=== PATIENT | male | born 1950 | race Caucasian/White ===

== ENCOUNTER 2019-03-17 03:19 | Observation (INO) | payer OTHER, MEDICARE ==
[2019-03-17] MEDS ORDERED: NS 1,000 ML IV ONE (03:28)
--- NOTE | 2019-03-17 03:29 | EDPHY ---
H & P Stated Complaint: afib Time Seen by Provider: 03/17/19 03:29 HPI/ROS: HPI CHIEF COMPLAINT: Palpitations, fast heart rate, and irregular heart rate. HISTORY OF PRESENT ILLNESS: Patient is a 69-year-old male, he arrives to the emergency room stating that he woke up from sleep around 230 in the morning feeling his heart race very fast and irregular. He did not have any chest pain or shortness of breath denies any chest pressure. However continues to have palpitations. Patient does report that he did a large amount of yd work today may have gotten hydrated. Past Medical History: History of hypertension in AFib. Past Surgical History: Recent surgical history Social History: Denies drugs or tobacco. Occasional alcohol use. Family History: Noncontributory ROS REVIEW OF SYSTEMS: 10 Systems were reviewed and negative with the exception of the elements mentioned in the history of present illness. Exam Constitutional nontoxic, triage nursing summary reviewed, vital signs reviewed , awake/alert. Eyes normal conjunctivae and sclera, EOMI, PERRLA. HENT normal inspection, atraumatic, moist mucus membranes, no epistaxis, neck supple/ no meningismus, no raccoon eyes. Respiratory clear to auscultation bilaterally, normal breath sounds, no respiratory distress, no wheezing. Cardiovascular irregular, irregular rhythm, fast. Gastrointestinal soft, non-tender, no rebound, no guarding, normal bowel sounds, no distension, no pulsatile mass. Genitourinary no CVA tenderness. Musculoskeletal no midline vertebral tenderness, full range of motion, no calf swelling, no tenderness of extremities, no meningismus, good pulses, neurovascularly intact. Skin pink, warm, & dry, no rash, skin atraumatic. Neurologic awake, alert and oriented x 3, AAOx3, moves all 4 extremities equally, motor intact, sensory intact, CN II-XII intact, normal cerebellar, normal vision, normal speech. Psychiatric normal mood/affect. Heme/Lymph/Immune no lymphadenopathy. Differential Diagnosis: Includes but is not limited to in a particular order AFib with RVR, SVT, AVR ENT, V-tach, VFib, ACS Medical Decision Making: Plan for this patient IV establishment IV fluid bolus , EKG, chest x-ray, basic labs, troponin, IV fluid bolus. Re-evaluation: EKG interpretation by me on record in [facility] system. Impression time of EKG 3:34 a.m., AFib rate of 101, no signs of acute ischemia no ST elevation no ST depression Troponin 0.02. Chest x-ray: Negative for acute cardiopulmonary disease. Patient was given 15 mg of IV diltiazem. Patient's current heart rate is 64 and appears to be sinus on the monitor. Will repeat EKG. EKG interpretation by me on record in [facility] system. Impression time of EKG 5:36 a.m. This is a repeat EKG sinus rhythm rate of 61, no acute ischemia no ST elevation no ST depression no significant T-wave abnormalities. Repeat troponin 0.07. Long discussion with the patient as well as Cardiology I spoke with Dr. Lezama, discussed the case in detail. Dr. Pizano would like the patient to be admitted for further evaluation echocardiogram serial enzymes. I discussed this with the patient. He is agreeable for this plan. Dr. Horn consulted for admission. Agrees to admit. Source: Patient - Personal History Current Tetanus Diphtheria and Acellular Pertussis (TDAP): Yes Tetanus Vaccine Date: 2009 - Medical/Surgical History Hx Asthma: No Hx Chronic Respiratory Disease: No Hx Diabetes: No Hx Cardiac Disease: Yes Hx Renal Disease: No Hx Cirrhosis: No Hx Alcoholism: No Hx HIV/AIDS: No Hx Splenectomy or Spleen Trauma: No Other PMH: afib, L knee surgery, rhinoplasty - Social History Smoking Status: Never smoked Constitutional: Initial Vital Signs Temperature (C) 36.6 C 03/17/19 03:25 Heart Rate 100 03/17/19 03:25 Respiratory Rate 18 03/17/19 03:25 Blood Pressure 149/102 H 03/17/19 03:25 O2 Sat (%) 97 03/17/19 03:25 O2 Delivery Mode Room Air O2 (L/minute) 2 Allergies/Adverse Reactions: lisinopril Allergy (Verified 03/17/19 03:21) Penicillins Allergy (Verified 03/17/19 03:21) Home Medications: Medication Instructions Recorded Atorvastatin Calcium [Lipitor 10 10 mg PO HS 02/21/12 mg (*)] Fluticasone Nasal [Flonase Nasal 2 sprays NASAL DAILY 02/21/12 [place]] Nebivolol HCl [Bystolic 5 mg (*)] 5 mg PO DAILY 03/26/12 Apixaban [Eliquis] 5 mg PO BID #60 tab 03/17/19 Calcium Carb W/Vit D [Calcium Carb 500 mg PO DAILY 03/17/19 W/Vit D 500/200 (*)] Cholecalciferol Vit D3 [Vitamin D3 1,000 units PO DAILY 03/17/19 (*)] Flurandrenolide [Cordran] 1 saumya TP DAILY PRN 03/17/19 Herbals/Supplements -Info Only 1 ea PO DAILY 03/17/19 Luliconazole [Luzu] 1 saumya TP DAILY PRN 03/17/19 Multivitamins [Multivitamin (*)] 1 each PO DAILY 03/17/19 [place]-3 Fatty Acids [Fish Oil 1000 1,000 mg PO DAILY 03/17/19 mg (*)] amLODIPine BESYLATE [Norvasc 2.5 2.5 mg PO DAILY #30 tab 03/17/19 mg (*)] Medical Decision Making - Data Points Laboratory Results: Laboratory Results 03/17/19 03:40 03/17/19 03:40 03/17/19 03:40 TSH 5.180 uIU/mL H uIU/mL (0.465-4.680) Medications Given: Discontinued Medications Amlodipine Besylate (Norvasc) 2.5 mg PO DAILY CYNTHIA Stop: 09/13/19 11:59 Last Admin: 03/17/19 12:04 Dose: 2.5 mg Apixaban (Eliquis) 5 mg PO BID CYNTHIA Stop: 09/13/19 11:59 Last Admin: 03/17/19 12:05 Dose: 5 mg Chlorthalidone (Chlorthalidone) 6.25 mg PO DAILY CYNTHIA Stop: 09/13/19 11:14 Last Admin: 03/17/19 11:56 Dose: Not Given Diltiazem HCl (Cardizem 25 Mg/5 Ml Vial) 10 mg IVP EDNOW ONE Stop: 03/17/19 03:39 Last Admin: 03/17/19 03:55 Dose: 10 mg Sodium Chloride (Ns) 1,000 mls @ 0 mls/hr IV EDNOW ONE; Wide Open PRN Reason: Protocol Stop: 03/17/19 03:29 Last Admin: 03/17/19 03:55 Dose: 1,000 mls Nebivolol (Bystolic) 5 mg PO DAILY CYNTHIA Stop: 09/13/19 11:14 Last Admin: 03/17/19 12:05 Dose: 5 mg Potassium Chloride (Klor Packets) 20 meq PO EDNOW ONE Stop: 03/17/19 06:13 Last Admin: 03/17/19 06:30 Dose: 20 meq Point of Care Test Results: Chemistry 03/17/19 03/17/19 05:44 03:40 POC Troponin I 0.07 ng/mL ng/mL 0.02 ng/mL ng/mL (0.00-0.08) (0.00-0.08) Departure - Departure Disposition: [facility] Inpatient Acute Clinical Impression: Atrial fibrillation Condition: Good
[2019-03-17] MEDS ORDERED: DILTIAZEM 25 MG/5 ML VIAL IVP ONE (03:38)
[2019-03-17 03:47] LABS: PLATELET COUNT 160 10^3/uL (150-400)
[2019-03-17 04:04] LABS: INR 0.98 (0.83-1.16); PROTIME(PATIENT) 12.6 SEC (12.0-15.0)
[2019-03-17] MEDS ORDERED: POTASSIUM CL 20 MEQ PKT PO ONE (06:12)
[2019-03-17] MEDS ORDERED: ONDANSETRON 4 MG/2 ML VIAL IVP PRN (08:39)
[2019-03-17] MEDS ORDERED: oxyCODONE IR 5 MG TAB PO PRN (08:39)
[2019-03-17] MEDS ORDERED: ACETAMINOPHEN 325 MG TAB PO PRN (08:39)
[2019-03-17] MEDS ORDERED: ONDANSETRON DISINTEGRATING 4 MG TAB PO PRN (08:39)
--- NOTE | 2019-03-17 10:48 | PDGENHP ---
History and Physical - Chief Complaint palpitations - History of Present Illness 69yo M with history of paroxysmal atrial fibrillation, HTN, HLD, ASD presents to ED after being woken up by palpitations. He thought he was having a panic attack. Denies chest discomfort, dizziness, lightheadedness. He was feeling a little short of breath and decided to come to the ED where he was found to be in atrial fibrillation with a HR in the low 100s. His BP was normal. He was given one dose of 15mg IV diltiazem and converted to sinus rhythm where he has remained. His repeat ECG was without acute ischemia. Initial POC troponin was 0.02 and repeat was 0.07. ED provider d/w cardiology who recommended observation for echocardiogram and serial troponins. Currently patient has no complaints. He denies any chest pain. He reports exercising routinely without palpitations. He has never had an [place]. History Information - Allergies/Home Medication List Allergies/Adverse Reactions: lisinopril Allergy (Verified 03/17/19 03:21) Penicillins Allergy (Verified 03/17/19 03:21) Home Medications: Aspirin [Aspirin 81mg (OTC)] 81 mg PO HS 02/21/12 [Last Taken 03/16/19] Atorvastatin Calcium [Lipitor 10 mg (RX)] 10 mg PO HS 02/21/12 [Last Taken 03/16] Fluticasone Nasal [Flonase Nasal [place] (RX)] 2 sprays NASAL DAILY 02/21/12 [ Last Taken 03/16/19] Nebivolol HCl [Bystolic 5 mg (RX)] 5 mg PO DAILY 02/21/12 [Last Taken 03/16/19] Calcium Carb W/Vit D [Calcium Carb W/Vit D 500/200 (*)] 500 mg PO DAILY [Last Taken Unknown] Chlorthalidone [Chlorthalidone 25 mg (*)] 6.25 mg PO DAILY 03/17/19 [Last Taken 03/16/19] Cholecalciferol Vit D3 [Vitamin D3 (*)] 1,000 units PO DAILY 03/17/19 [Last Taken Unknown] Flurandrenolide [Cordran] 1 saumya TP DAILY PRN 03/17/19 [Last Taken Unknown] Herbals/Supplements -Info Only 1 ea PO DAILY 03/17/19 [Last Taken Unknown] Luliconazole [Luzu] 1 saumya TP DAILY PRN 03/17/19 [Last Taken Unknown] Multivitamins [Multivitamin (*)] 1 each PO DAILY 03/17/19 [Last Taken Unknown] [place]-3 Fatty Acids [Fish Oil 1000 mg (*)] 1,000 mg PO DAILY 03/17/19 [Last Taken Unknown] I have personally reviewed and updated: family history, medical history, social history, surgical history - Past Medical History Additional medical history: paroxysmal atrial fibrillation, HTN, HLD, ASD - Surgical History Additional surgical history: knee surgery - Family History Additional family history: No family history of CAD. 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 Review of Systems Review of Systems: ROS: 10pt was reviewed & negative except for what was stated in HPI & below Physical Exam Physical Exam: Temp Pulse Resp BP Pulse Ox 36.3 C 63 17 126/75 H 94 03/17/19 09:54 03/17/19 09:54 03/17/19 09:54 03/17/19 09:54 03/17/19 09:54 Constitutional: no apparent distress, appears nourished, not in pain Eyes: PERRL, anicteric sclera, EOMI Ears, Nose, Mouth, Throat: moist mucous membranes, hearing normal, ears appear normal, no oral mucosal ulcers Cardiovascular: regular rate and rhythym, no murmur, rub, or gallop, No JVD, No edema Respiratory: no respiratory distress, no rales or rhonchi, clear to auscultation Gastrointestinal: normoactive bowel sounds, soft, non-tender abdomen, no palpable masses Genitourinary: no bladder fullness, no bladder tenderness Skin: warm, normal color, no rashes or abrasions, no fluctuance, no induration, No mottled Musculoskeletal: full muscle strength, no muscle tenderness, normal joint ROM, no joint effusions Neurologic: AAOx3 Psychiatric: interacting appropriately, not anxious, not encephalopathic, thought process linear Lab Data & Imaging Review 03/17/19 03:40 03/17/19 03:40 WBC 7.74 10^3/uL (3.80-9.50) 03/17/19 03:40 RBC 5.11 10^6/uL (4.40-6.38) 03/17/19 03:40 Hgb 15.2 g/dL (13.7-17.5) 03/17/19 03:40 Hct 43.0 % (40.0-51.0) 03/17/19 03:40 MCV 84.1 fL (81.5-99.8) 03/17/19 03:40 MCH 29.7 pg (27.9-34.1) 03/17/19 03:40 MCHC 35.3 g/dL (32.4-36.7) 03/17/19 03:40 RDW 12.0 % (11.5-15.2) 03/17/19 03:40 Plt Count 160 10^3/uL (150-400) 03/17/19 03:40 MPV 9.0 fL (8.7-11.7) 03/17/19 03:40 Neut % (Auto) 49.9 % (39.3-74.2) 03/17/19 03:40 Lymph % (Auto) 35.0 % (15.0-45.0) 03/17/19 03:40 [place] % (Auto) 10.1 % (4.5-13.0) 03/17/19 03:40 Eos % (Auto) 4.0 % (0.6-7.6) 03/17/19 03:40 Baso % (Auto) 0.9 % (0.3-1.7) 03/17/19 03:40 Nucleat RBC Rel Count 0.0 % (0.0-0.2) 03/17/19 03:40 Absolute Neuts (auto) 3.86 10^3/uL (1.70-6.50) 03/17/19 03:40 Absolute Lymphs (auto) 2.71 10^3/uL (1.00-3.00) 03/17/19 03:40 Absolute Monos (auto) 0.78 10^3/uL (0.30-0.80) 03/17/19 03:40 Absolute Eos (auto) 0.31 10^3/uL (0.03-0.40) 03/17/19 03:40 Absolute Basos (auto) 0.07 10^3/uL (0.02-0.10) 03/17/19 03:40 Absolute Nucleated RBC 0.00 10^3/uL (0-0.01) 03/17/19 03:40 Immature Gran % 0.1 % (0.0-1.1) 03/17/19 03:40 Immature Gran # 0.01 10^3/uL (0.00-0.10) 03/17/19 03:40 PT 12.6 SEC (12.0-15.0) 03/17/19 03:40 INR 0.98 (0.83-1.16) 03/17/19 03:40 APTT 29.6 SEC (23.0-38.0) 03/17/19 03:40 Sodium 140 mEq/L (135-145) 03/17/19 03:40 Potassium 3.2 mEq/L (3.5-5.2) L 03/17/19 03:40 Chloride 107 mEq/L (97-110) 03/17/19 03:40 Carbon Dioxide 22 mEq/l (22-31) 03/17/19 03:40 Anion Gap 11 mEq/L (6-14) 03/17/19 03:40 BUN 31 mg/dL (7-23) H 03/17/19 03:40 Creatinine 1.2 mg/dL (0.7-1.3) 03/17/19 03:40 Estimated GFR 60 03/17/19 03:40 Glucose 97 mg/dL (70-100) 03/17/19 03:40 Calcium 9.8 mg/dL (8.5-10.4) 03/17/19 03:40 Magnesium 1.9 mg/dL (1.6-2.3) 03/17/19 03:40 POC Troponin I 0.07 ng/mL (0.00-0.08) 03/17/19 05:44 NT-Pro-B Natriuret Pep 121 pg/mL (0-125) 03/17/19 03:40 TSH 5.180 uIU/mL (0.465-4.680) H 03/17/19 03:40 Interpretation: CXR: normal heart size, no pulm edema, no infiltrate or effusion (reviewed/interpreted by me) EKG additional interpertation: ECG #1: atrial fibrillation with HR 101. ECG #2 : normal sinus rhtyhm, slightly prolonged MI interval, normal axis, normal ST-T segments, borderline inferior Q waves (old) Assessment & Plan Assessment: 69yo M with history of paroxysmal atrial fibrillation, HTN, HLD presents to ED after being woken up by palpitations found to be in atrial fibrillation. Plan: #Atrial fibrillation: Converted to sinus after 1 dose of IV diltiazem. This is his third lifetime episode of afib. - TSH mildly elevated, likely appropriate for age. Will add on free T4 but do not think contributing to presentation - TTE - Check troponin this morning - Cardiology consulted in ED - [id number]=6 (htn, age). He is hesitant about anticoagulation. I recommend starting eliquis 5mg BID and f/u w/Dr Rios. #ASD #HTN: Normotensive. Continue home nevibolol and hctz. #HLD: On statin. Dispo: Admit under observation. Plan to discharge on anticoagulation later today if TTE ok.
[2019-03-17 11:05] VITALS: BP 113/60
[2019-03-17] MEDS ORDERED: CHLORTHALIDONE 25 MG TAB PO SCH (11:15)
[2019-03-17] MEDS ORDERED: NEBIVOLOL HCL 5 MG TAB PO SCH (11:15)
--- NOTE | 2019-03-17 11:22 | ECHO ---
[email or web address] [address] [address] Main: [phone] Echocardiography Examination Transthoracic Name: SHANELLE PAGAN MR#: [id number] Study Date: 03/17/2019 Study Time: 08:19 AM Date of : 1950 Age: 69 year(s) Height: 182.9 cm (72 in.) Weight: 96.16 kg (212 lb.) BSA: 2.18 m2 Gender: Male Examination: Echo Contrast: Image Quality: Adequate Rhythm: Normal sinus rhythm Heart Rate: 61 bpm BP: 112 mmHg/76 mmHg Indication: afb Procedure Staff Referring Physician: Geriatric Assistant: Elizabeth Lam [facility] Reading Physician: Ladonna Sotomayor MD Requesting Provider: Ordering Physician: Darren Boswell Indication: afb Measurements Chambers AV/MV Label Value Normal Value Label Value Normal Value LVOT Vmax 1.08 m/s (0.7m/s - 1.1m/s) AV PGmax 6 mmHg LVOTd 2.3 cm (1.9cm - 2.1cm) AV Vmax 1.2 m/s LVDd, 2D 3.9 cm (4.2cm - 5.9cm) MAURY (Vmax) 3.7 cm2 LVDs, 2D 2.7 cm (2.1cm - 4cm) MV E Vmax 0.61 m/s IVSd, 2D 0.8 cm (0.6cm - 1.1cm) MV A Vmax 0.63 m/s LVPWd, 2D 1 cm (0.6cm - 1cm) MV E/A 0.97 LVEF, BP 72 % (55% - 70%) MV E/E' lateral 7.1 LVEF, 2D 59 % (54% - 74%) MV E/E' septal 10.3 (0.45 - 1.25) RVDd, 2D 4 cm (1.9cm - 3.8cm) MV DT 134 ms LA Volume, BP 65 ml (18ml - 58ml) MV E' septal 0.06 m/s LADs, 2D 3.2 cm (3cm - 4cm) MV E' lateral 0.09 m/s LAESV index, BP 29.8 ml/m2 MV E/E' mean 8.13 RA Area 17.6 cm2 MV E' mean 0.08 m/s Additional Vessels TV/PV Label Value Normal Value Label Value Normal Value AoAsc 3.3 cm PV PGmax 6 mmHg AoRoot, 2D 3.7 cm (1.4cm - 2.6cm) PV Vmax, Caliper 1.23 m/s (0.6m/s - 0.9m/s) Patient: SHANELLE PAGAN Study Date: 03/17/2019 Page 1 of 2 08:19 AM Conclusions 1. Normal LV size and systolic function. LVEF is 72%. Normal wall motion 2. RV normal in size and sysotlic function 3. RA upper limits of normal in size 4. LA normal in size 5. No significant valvular disease; cannot assess PASP 6. Patient had a JOSELYN in 2011 with similar findings and a positive bubble study Findings Left Ventricle: Left ventricle is normal in size. Normal global systolic left ventricular function. EF evaluated by EF (biplane Larose's). The ejection fraction, measured by Simpsons method, is 72 %. EF range is estimated at 65 % - 70 %. The LV wall thickness is at the upper limits of normal. There are no regional wall motion abnormalities. Left ventricular diastolic function parameters are normal. Right Ventricle: Normal size right ventricle. Right ventricular systolic function is normal. Left Atrium: Known PFO by JOSELYN 06/2012 not appreciated on this exam.. The left atrium is normal in size. Right Atrium: The right atrium size is at the upper limits of normal. Mitral Valve: Mitral valve appears structurally normal. No mitral regurgitation. No mitral valve stenosis. There is minimal mitral thickening. Aortic Valve: The aortic valve is structurally normal and trileaflet. No aortic valve regurgitation. There is no aortic stenosis. There is aortic sclerosis present. Tricuspid Valve: Tricuspid valve leaflets are structurally normal. Trivial tricuspid regurgitation. Pulmonary artery pressure cannot be assessed due to inadequate TR signal. Pulmonic Valve: Pulmonic valve is poorly visualized. Aorta: The aortic root size in 2D measures 3.7 cm. The aortic root exhibits normal size. The ascending aorta measures 3.3 cm. Ascending aorta is normal in size. Aorta Measurements AoRoot, 2D is 3.7 cm. IVC: The inferior vena cava is normal in size and course. Pericardium: No pericardial effusion. Exam Details Procedure Ordered: Echo Procedure Status: Routine study Image Quality: Adequate Facility Location: Cardiac Echo 1 (No Signature Object) Patient: SHANELLE PAGAN Study Date: 03/17/2019 Page 2 of 2 08:19 AM [id number]
[2019-03-17] MEDS ORDERED: APIXABAN 5 MG TAB PO SCH (12:00)
--- NOTE | 2019-03-17 13:09 | GCON ---
[f rep st] CONSULTATION CARDIOLOGY CONSULT. DATE OF CONSULTATION: 03/17/2019 PRIMARY CARE: Radha Curry MD. PRIMARY SPECIAL FORCES SPECIALIST: Jose Rios MD CHIEF COMPLAINT: Atrial fibrillation. HISTORY OF PRESENT ILLNESS: We were asked by Dr. Terry to visit with the patient. The patient is a pleasant 69-year-old male with a history of atrial fibrillation in the past. He has had 2 previou s episodes spread over about 10 or 15 years. He last saw Dr. Rios in 2016. Other history includes known PFO seen on JOSELYN in 2011, hypertension, dyslipidemia. Yesterday, he worked outside a lot in the garden and admits he may have become dehydrated. He woke u p around 2:30 this morning with palpitations but no other cardiovascular symptoms. He presented to t ER and was found to be in atrial fibrillation with ventricular rate about 100 beats per minute. H e received a single bolus of IV diltiazem and then converted to normal sinus rhythm. His troponins h ave been negative. He reports feeling well. Again, denies chest pain, dyspnea, , or syncope. No lower extrem ity edema. He reports that his tells him he snores from time to time. REVIEW OF SYSTEMS: A full 10-point review of systems is performed and is notable for that which is o utlined above. 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 No nausea, vomiting, or diarrhea. Otherwise, a full 10-point review of systems i s negative. ALLERGIES: Lisinopril causes angioedema. He is also allergic to penicillin. PAST MEDICAL HISTORY: 1. Paroxysmal atrial fibrillation. 2. PFO. 3. Dyslipidemia. 4. Hypertension. 5. History of knee surgery. OUTPATIENT MEDICATIONS: Chlorthalidone 6.25 mg daily, Bystolic 5 mg daily, aspirin 81 mg daily, Lipi tor 10 mg daily, calcium, vitamin D3, Cordran lotion, Flonase nasal spray, [place] topical, omega-3 fatt y acids, and multivitamin. SOCIAL HISTORY: The patient drinks alcohol daily. He does not smoke. FAMILY HISTORY: Negative for premature coronary disease. PHYSICAL EXAMINATION: VITAL SIGNS: Blood pressure 113/60, heart rate 72, oxygen saturation 97% on r oom air. GENERAL: He is a well-appearing older male in no acute distress. HEENT: Sclerae are isabela r and free of jaundice. Mucous membranes are moist. Normocephalic, atraumatic. CARDIOVASCULAR: JV P is less than 10. Carotids equal and 2+ without bruit. Regular rate and rhythm without murmur, rub , or gallop. LUNGS: Clear to auscultation bilaterally, without wheezes, rhonchi, or rales. ABDOMEN : Soft, nontender, nondistended, without bruits, masses, or hepatosplenomegaly. EXTREMITIES: Warm and well perfused without cyanosis, clubbing, or edema. NEURO: Alert and oriented x3 without gross focal neurological deficits. PSYCH: Appropriate mood and affect. LABORATORY DATA: CBC is normal. INR, PT, and PTT are normal. Sodium 140, potassium 3.2, chloride 1 07, bicarb 22, BUN 31, creatinine 1.2. Magnesium 1.9. Troponin negative x2. TSH 5.18. LDL cholest danyelle was 97 in January of 2018. Serial EKG reviewed by me. Initial EKG in the ER shows atrial fibrillation with ventricular response of about 100 beats per minute, no ischemia. Post-conversion EKG shows sinus rhythm with small infer ior Q-waves. This is similar to 2017 EKG. Echocardiogram reviewed by me. Normal LV size and systolic function. No regional wall motion abnorm alities. No significant valvular disease. Borderline RA dilation. Normal left atrial size. Stress echocardiogram in 2013 in our office was normal. JOSELYN in 2011 showed PFO. ASSESSMENT AND PLAN: 69-year-old male with third episode of atrial fibrillation over several years. This may have been triggered by dehydration and mild hypokalemia. It is possible that he has sleep apnea as well. Also, we would need to sort out exactly how much alcohol he drinks. He may benefit f rom decrease or cessation. 1. Atrial fibrillation: Currently in sinus rhythm. I had a long discussion with the patient about the risks and benefits of anticoagulation. His CHADS2-VASc score is 2, and I do think that Eliquis i s warranted. He agrees to this, at least in the short term. Continue Bystolic. We cannot increase the dose given his resting bradycardia. As mentioned above, consider outpatient sleep medicine evalu ation. Consider EP evaluation if atrial fibrillation recurs. Follow up with Dr. Rios. 2. Hypertension: Well controlled. The chlorthalidone is likely contributing to his hypokalemia. W e will stop this and start low-dose amlodipine. He thinks he may have had swelling with amlodipine i n the past. We will start with a dose of 2.5 mg and monitor. 3. Hypokalemia: As above. Stop chlorthalidone. He will try to supplement with hydration and elect rolytes at home. Repeat BMP in a few days as an outpatient. 4. Dyslipidemia: Continue statin. We will need routine lipid surveillance. Thank you for allowing me to participate in the patient's care. He is stable for discharge from card iovascular standpoint. Discussed with Dr. Terry. Follow up with Dr. Rios as mentioned above. /[id number]/MODL
--- NOTE | 2019-03-17 13:53 | PDDCSUM ---
Discharge Summary Discharge Summary: Date of Admission: 03/17/2019 Date of Discharge: 03/17/2019 Consultants: cardiology Studies: TTE Discharge Diagnoses: 1. Atrial fibrillation 2. Hypertension 3. Hyperlipidemia 4. Patent foramen ovale 5. Hypokalemia Brief Hospital Course: 69yo M with history of paroxysmal atrial fibrillation not on anticoagulation, HTN, HLD presented to ED after being woken up by palpitations. He was found to be in atrial fibrillation with a HR in the low 100s. He converted to sinus after 1 dose of 15mg IV diltiazem. Serial troponins were negative. An echocardiogram was normal except for a mildly enlarged RA. Cardiology was consulted. This is his third lifetime episode of afib. He was started on eliquis for stroke prevention ([id number] for htn and age). He is on nevibolol. He was noted to be slightly hypokalemic so his thiazide diuretic was stopped and he was switched to amlodipine for BP control. 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 Medications: Please refer to EMR for complete list. We have stopped his aspirin and chlorthalidone. We have started eliquis 5mg BID and amlodipine 2.5mg daily. Follow Up Plan: Dr Jose Rios of cardiology in 2-4 weeks. PCP for routine follow up. Please see physical exam from admission note.
--- NOTE | 2019-03-17 14:14 | ASDISCHSUM ---
Discharge Information Plan Status:Home with No Needs Medically Cleared to Leave: Discharge Date: D/C Disposition: ADT D/C Disposition:Home, Routine, Self-Care Projected Discharge Date: Transportation at D/C: Discharge Delay Reason: Follow-Up Date: Discharge Slot: Final Diagnosis: Placement Information Patient Contact Information Contact Name:TAJ Relationship: Address:[address] City:[place] Alternate Phone: State/Zip Code:[place] [address] Email: Financial Information Financial Class:Medicare Primary Plan Desc:MEDICARE INPATIENT Primary Plan Number:[id number] Secondary Plan Desc:[employer]/MDR SUPPLEMENT Secondary Plan Number:[id number] Assessment Information Intervention Information
--- NOTE | 2019-03-17 14:21 | ASMTDCNOTE ---
Case Management Discharge Discharge Order Complete? Answers: Yes Patient to Obtain Answers: via Family Medications Transportation Arranged Answers: Family/Friends Discharge Comments Notes: Pt is a 69 yo male presents with afib. Pt will follow-up with Cardiology in outpatient. No other CM needs identified at this time. LORENE signed and placed in chart. Date Signed: 03/17/2019 02:20 PM Electronically Signed By:RUIZ Sanchez
[2019-03-17] MEDS ORDERED: ATORVASTATIN CALCIUM 10 MG TAB PO SCH (21:00)
[2019-03-18] MEDS ORDERED: CHOLECALCIFEROL VIT D3 1,000 UNITS TAB PO SCH (09:00)
[2019-03-18] MEDS ORDERED: CALCIUM CARB W/VIT D 500 MG TAB PO SCH (09:00)
[2019-03-18] MEDS ORDERED: FLUTICASONE NASAL 120 SPRAYS/16 GM MDI EACHNARE SCH (09:00)
== END 2019-03-17 14:20 | disposition home or self-care (01) ==
LOC: F2W 09:50
PROVIDERS: ADMIT Internal Medicine; ATTEND Internal Medicine
PROC: 3E033RZ Introduction of Antiarrhythmic into Peripheral Vein, Percutaneous Approach (ICD-10-PCS; principal; 2019-03-17)
DX: I48.0 Paroxysmal atrial fibrillation (principal); I10 Essential (primary) hypertension; E78.5 Hyperlipidemia, unspecified; E87.6 Hypokalemia; E86.9 Volume depletion, unspecified; Q21.1 Atrial septal defect
CPT/HCPCS: 71045; 93306; G0378; 84484-ER; 96374